=== PATIENT | female | born 1995 | race Caucasian/White ===

== ENCOUNTER 2018-12-07 00:20 | Emergency (ER) | payer OTHER ==
[~2018-12-07] VITALS: Ht 157.5 cm; Wt 79.0 kg
[2018-12-07 00:41] VITALS: BP 129/96; Ht 157.5 cm; Wt 79.0 kg
[2018-12-07 01:17] LABS: BASOPHIL % 0.4 % (0-2); PLATELET COUNT 234 x10^3mcL (130-400)
[2018-12-07 01:20] LABS: RED CELL DISTRIBUTION WIDTH 15.6 % (11.5-14.5)
[2018-12-07 01:22] LABS: CALCIUM 8.3 mg/dL (8.5-10.1); CARBON DIOXIDE 21.1 mmol/L (21-32); CHLORIDE SERUM 110 mmol/L (98-107); CREATININE SERUM 0.5 mg/dL (0.6-1.0); GFR1 > 60 mL/min; GLUCOSE SERUM 85 mg/dL (74-106); POTASSIUM SERUM 3.2 mmol/L (3.5-5.1); SODIUM SERUM 142 mmol/L (136-145)
[2018-12-07 01:27] LABS: ALBUMIN 2.1 g/dL (3.4-5.0); ALKALINE PHOSPHATASE 189 U/L (46-116); ALT/SGPT 10 U/L (14-59); AST/SGOT 10 U/L (15-37); BILIRUBIN TOTAL 0.53 mg/dL (0.20-1.00); LIPASE 65 IU/L (73-393); TOTAL PROTEIN, SERUM 5.9 g/dL (6.4-8.2)
== END 2018-12-07 01:48 | disposition home or self-care (01) ==
LOC: ED 00:20
PROVIDERS: Emergency Medicine
DX: O99.611 Diseases of the digestive system complicating pregnancy, first trimester (principal); K92.9 Disease of digestive system, unspecified; K29.70 Gastritis, unspecified, without bleeding; O21.9 Vomiting of pregnancy, unspecified; K13.0 Diseases of lips; Z3A.34 34 weeks gestation of pregnancy
CPT/HCPCS: 36415; Q0162

== ENCOUNTER 2019-01-07 18:12 | Inpatient (IN) | payer OTHER ==
[~2019-01-07] VITALS: Ht 162.6 cm; Wt 81.9 kg
--- NOTE | 2019-01-07 18:21 | NUR ---
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 PER MEDICS PT WOKE UP FROM HER SLEEP SHORT OF BREATH WITH A CONGESTED COUGH. PT RECENTLY HAD A VAGINAL ON 01/05/19. PER MEDICS PT ON SCENE WAS HYPERTENSIVE, TACYPNEIC, DIAPHORETIC AND HER O2 SAT WAS LOW 80'S, WITH TACHYCARDIA. UPON ARRIVAL PT AAOX4, RESPS LABORED WITH SYMMETRICAL RISE AND FALL. PT SKIN PINK DIAPORETIC AND WARM HOWEVER DRY ORAL MUCOSAS NOTED. CONGESTION NOTED TO RIGHT LUNGS AND LEFT LUNGS CLEAR UPON AUSCULTATION, PT APPEAR ANXIOUS SHAKING HER LEGS. BLE EDEMA NOTED. PT STS "BEEN LIKE THAT SINCE BUT LEFT ONE IS WORSENED SINCE, PT ABLE TO SPEAK 3-4 WORDS AT AT TIME D/T COUGHING AND PAINFUL INSPIRATION. PT ALSO +NAUSEA WITH NO EPISODES OF VOMITING, PT GOWNED AND PLACED ON FULL CM, SINUS TACYCARDIA,
--- NOTE | 2019-01-07 18:21 | NUR ---
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 PER MEDICS PT WOKE UP FROM HER SLEEP SHORT OF BREATH WITH A CONGESTED COUGH. PT RECENTLY HAD A VAGINAL ON 01/05/19. PER MEDICS PT ON SCENE WAS HYPERTENSIVE, TACYPNEIC, DIAPHORETIC AND HER O2 SAT WAS LOW 80'S, WITH TACHYCARDIA. UPON ARRIVAL PT AAOX4, RESPS LABORED WITH SYMMETRICAL RISE AND FALL. PT SKIN PINK DRY AND WARM HOWEVER DRY ORAL MUCOSAS NOTED. CONGESTION NOTED TO RIGHT LUNGS AND LEFT LUNGS CLEAR UPON AUSCULTATION, PT APPEAR ANXIOUS SHAKING HER LEGS. BLE EDEMA NOTED. PT STS "BEEN LIKE THAT SINCE BUT LEFT ONE IS WORSENED SINCE, PT ABLE TO SPEAK 3-4 WORDS AT AT TIME D/T COUGHING AND PAINFUL INSPIRATION. PT ALSO +NAUSEA WITH NO EPISODES OF VOMITING, PT GOWNED AND PLACED ON FULL CM, SINUS TACYCARDIA,
--- NOTE | 2019-01-07 18:23 | NUR ---
EKG IN PROGRESS
--- NOTE | 2019-01-07 18:27 | NUR ---
RT AT BEDSIDE
[2019-01-07 18:35] LABS: BASOPHIL % 0.5 % (0-2); PLATELET COUNT 308 x10^3mcL (130-400)
[2019-01-07 18:38] LABS: CALCIUM 7.6 mg/dL (8.5-10.1); CARBON DIOXIDE 22.2 mmol/L (21-32); CHLORIDE SERUM 108 mmol/L (98-107); CREATININE SERUM 0.8 mg/dL (0.6-1.0); GFR1 > 60 mL/min; GLUCOSE SERUM 93 mg/dL (74-106); POTASSIUM SERUM 4.4 mmol/L (3.5-5.1); SODIUM SERUM 143 mmol/L (136-145)
[2019-01-07 18:42] LABS: ALKALINE PHOSPHATASE 152 U/L (46-116); ALT/SGPT 20 U/L (14-59); AST/SGOT 36 U/L (15-37); BILIRUBIN TOTAL 0.4 mg/dL (0.20-1.00)
[2019-01-07 18:47] LABS: ALBUMIN 2.1 g/dL (3.4-5.0); TOTAL PROTEIN, SERUM 5.9 g/dL (6.4-8.2)
[2019-01-07 18:48] LABS: RED CELL DISTRIBUTION WIDTH 17.4 % (11.5-14.5)
--- NOTE | 2019-01-07 18:48 | NUR ---
PORTABLE CXR AT BEDSIDE
--- NOTE | 2019-01-07 18:54 | NUR ---
SPOUSE AT BEDSIDE
--- NOTE | 2019-01-07 19:10 | NUR ---
PT TAKEN TO CT VIA GURNEY ON PORTABLE CM
--- NOTE | 2019-01-07 19:25 | NUR ---
REPORT GIVEN TO THONG ROLDAN RN WHO IS RESUMING CARE OF PT AT THIS TIME
--- NOTE | 2019-01-07 20:26 | NUR ---
PT SITTING UP IN HIGH EPTER'S POSITION, RESP REMAINS TACHYPNEIC AT 32 BUT ARE EVEN AND UNLABORED. DENIES PAIN AT THIS TIME. O2 TITRATED DOWN TO 10L/MIN PER NON REBREATHER, PT TOLERATING WELL AND O2 SAT 99%.
--- NOTE | 2019-01-07 20:28 | NUR ---
DR LINDER AT BEDSIDE DISCUSSING PLAN OF CARE AT THIS TIME.
--- NOTE | 2019-01-07 20:31 | NUR ---
EKG IN PROGRESS
[2019-01-07 21:45] VITALS: BP 134/92
--- NOTE | 2019-01-07 21:50 | NUR ---
21:40 - PT NOTED TO BE INCREASINGLY TACHYPNEIC, ANXIOUS AND BECOMING AGITATED; STATING "I CAN'T BREATHE, I CAN'T BREATHE". PT NOTED TO BE SPITTING FOAMY YELLOW LIQUID OUT OF MOUTH. 21:45 - DR LINDER IN ROOM; PT INTUBATED BY DR LINDER, SEE CHART FOR DETAILS. 21:48 - PT NOTED WITH NO PULSES; CODE BLUE INITIATED. SEE CODE BLUE SHEET FOR DETAILS. 2150: ROSC ACHIEVED.
--- NOTE | 2019-01-07 22:20 | NUR ---
PROPOFOL STARTED AT 5 MCG/KG/MIN FOR SEDATION.
--- NOTE | 2019-01-07 23:00 | NUR ---
PORTABLE US IN PROGRESS AT BEDSIDE
[2019-01-07 23:01] LABS: UA SPECIFIC GRAVITY 1.025 (1.005-1.035); microscopic required? YES; urine erythrocyte 1+ (NEGATIVE)
--- NOTE | 2019-01-07 23:20 | NUR ---
PROPOFOL INFUSION INCREASED TO 10MCG/KG/MIN.
--- NOTE | 2019-01-07 23:30 | NUR ---
PROPOFOL INFUSION INCREASED TO 15 MCG/KG/MIN. PT VSS.
--- NOTE | 2019-01-07 23:45 | NUR ---
PROPOFOL INFUSION INCREASED TO 20 MCG/KG/MIN
[2019-01-08] VITALS (11 sets, daily range): BP systolic 106–145; BP diastolic 66–95; Ht 162.6 cm; Wt 81.9 kg
--- NOTE | 2019-01-08 | NUR ---
PROPOFOL INFUSION INCREASED TO 30 MCG/KG/MIN
--- NOTE | 2019-01-08 00:09 | NUR ---
DR SANCHEZ AND DR LINDER AT BEDSIDE
--- NOTE | 2019-01-08 00:09 | NUR ---
VENT SETTINGS CHANGED BY DR SANCHEZ. FI02 TO 70%.
--- NOTE | 2019-01-08 00:15 | NUR ---
PROPOFOL INCREASED TO 30MCG/KG/MIN
--- NOTE | 2019-01-08 00:33 | NUR ---
2GM MAG SULFATE GIVEN IVP PER DR LINDER ORDER.
--- NOTE | 2019-01-08 00:34 | NUR ---
PROPOFOL INFUSION INCREASED TO 35 MCG/KG/MIN
--- NOTE | 2019-01-08 00:50 | NUR ---
PROPOFOL INFUSION INCREASED TO 40 MCG/KG/MIN
--- NOTE | 2019-01-08 01:01 | NUR ---
PHARMACY CALLED FOR FENTANYL DRIP; WILL ADMINISTER ONCE COMPOUNDED AND AVAILABLE.
--- NOTE | 2019-01-08 01:13 | NUR ---
2L CLEAR YELLOW URINE DRAINED FROM F/C.
--- NOTE | 2019-01-08 01:34 | NUR ---
FENTANYL DRIP STARTED, VERIFIED WITH AWNING SPREADER AMANDA. WILL TITRATE.
--- NOTE | 2019-01-08 01:43 | NUR ---
REPORT CALLED TO GLENIS AT ICU FOR ADMISSION REPORT.
--- NOTE | 2019-01-08 01:47 | NUR ---
650CC CLEAR URINE EMPTIED FROM [facility] CATH
--- NOTE | 2019-01-08 02:15 | NUR ---
PT ARRIVED IN ICU FROM ER AND TRANSFERRED TO BED WITHOUT INCIDENT. PT CARE AND REPORT TAKEN INFORMATION TECHNOLOGY AUDIT MANAGER THONG WITH ALL QUESTIONS AND CONCERNS ANSWERED. PT SEDATED AND INTUBATED WITH A RSS OF 4. 7.5 ETT 23 AT LL ON VENT AC VT 500 RATE OF 16 PEEP 8 100% FIO2. WILL CONTINUE TO MONITOR PATIENT.
--- NOTE | 2019-01-08 03:16 | NUR ---
FAMILY AT BEDSIDE WITH THE PATIENT.
--- NOTE | 2019-01-08 04:11 | NUR ---
LAB AT BEDSIDE FOR DRAW
--- NOTE | 2019-01-08 04:16 | NUR ---
PROPOFOL TITRATED TO 45 MCG/KG/MIN DUE TO INCREASED PT MOVEMENT
[2019-01-08 05:19] LABS: PLATELET COUNT 251 x10^3mcL (130-400)
[2019-01-08 05:20] LABS: BASOPHIL % 0 % (0-2); RED CELL DISTRIBUTION WIDTH 17.4 % (11.5-14.5)
[2019-01-08 05:21] LABS: ALKALINE PHOSPHATASE 124 U/L (46-116); ALT/SGPT 22 U/L (14-59); AST/SGOT 43 U/L (15-37); BILIRUBIN TOTAL 0.3 mg/dL (0.20-1.00); CALCIUM 6.7 mg/dL (8.5-10.1); CARBON DIOXIDE 22.2 mmol/L (21-32); CHLORIDE SERUM 112 mmol/L (98-107); CREATININE SERUM 0.7 mg/dL (0.6-1.0); GFR1 > 60 mL/min; GLUCOSE SERUM 126 mg/dL (74-106); POTASSIUM SERUM 3.8 mmol/L (3.5-5.1); SODIUM SERUM 144 mmol/L (136-145)
[2019-01-08 05:29] LABS: ALBUMIN 2.1 g/dL (3.4-5.0); TOTAL PROTEIN, SERUM 5.2 g/dL (6.4-8.2)
[2019-01-08 05:31] LABS: MAGNESIUM 4.2 mg/dL (1.8-2.4)
--- NOTE | 2019-01-08 06:14 | NUR ---
PER DR RUST, SHE SPOKE WITH DR CABRAL AND HE STATED "THE PATIENT SHOULD NOT BE IN THIS HOSPITAL". DR RUST WAS UNSURE OF WHERE THE PATIENT SHOULD BE ADMITTED AND WAS TOLD TO CONTACT DR CABRAL.
--- NOTE | 2019-01-08 06:30 | NUR ---
DR MISHA LYONS. AWAITING RESPONSE FOR TRANSFER FACILITY
--- NOTE | 2019-01-08 06:30 | NUR ---
RT REDUCED FIO2 TO 90%
--- NOTE | 2019-01-08 06:44 | NUR ---
DR SCHWARTZ REQUESTED STAT ECH AND REPEAT BNP
--- NOTE | 2019-01-08 06:48 | NUR ---
UPDATES PROVIDED TO DR. SCHWARTZ, NEW ORDERS RECEIVED.
--- NOTE | 2019-01-08 07:05 | NUR ---
RECEIVED REPORT FROM GLENIS GREGORY. ALL QUESTIONS AND CONCERNS ADDRESSED. WILL RESUME CARE OF PT.
--- NOTE | 2019-01-08 07:07 | NUR ---
DR. SCHWARTZ AND DR. JACKSON AT BEDSIDE ASSESSING PT. ALL QUESTIONS AND CONCERNS ADDRESSED. NO NEW ORDERS AT THIS TIME.
--- NOTE | 2019-01-08 07:18 | NUR ---
ECCHO AT BEDSIDE.
--- NOTE | 2019-01-08 07:40 | NUR ---
RSS = 5. TITRATED PROPOFOL FROM 45 MCG/KG/MIN TO 40 MCG/KG/MIN.
--- NOTE | 2019-01-08 08:10 | NUR ---
RSS = 5. TITRATED PROPOFOL FROM 40 MCG/KG/MIN TO 35 MCG/KG/MIN.
--- NOTE | 2019-01-08 08:50 | NUR ---
RSS = 5. PROPOFOL TITRATED TO 30 MCG/KG/MIN.
--- NOTE | 2019-01-08 09:00 | NUR ---
SCREEN FOR LOW LAZARUS SCALE AT RISK PRESSURE ULCER INJURY PREVENTION INTERVENTIONS: -TURN AND REPOSITION PATIENT Q 2H OFFLOAD LEFT AND RIGHT HIPS -ASSESS AND MONITOR SKIN CONDITION DURING POSITION CHANGE -OFFLOAD BILATERAL HEELS BY PLACING PILLOWS UNDER CALVES AT ALL TIMES, UNLESS OTHERWISE CONTRAINDICATED -KEEP SKIN CLEAN AND DRY AT ALL TIMES.
--- NOTE | 2019-01-08 09:02 | NUR ---
TITRATED FENTANYL TO 0.5 MCG/KG/MIN TO ACHEIVE RSS = 4.
--- NOTE | 2019-01-08 09:10 | NUR ---
RSS = 5. PROPOFOL TITRATED FROM 30 MCG/KG/MIN TO 25 MCG/KG/MIN.
--- NOTE | 2019-01-08 09:30 | NUR ---
DR. SCHWARTZ NOTIFIED OF ABG RESULTS. STATED TO DROP FIO2% WITH PARAMETERS OF KEEPING PT'S O2 SAT ABOVE 92%. JUSTYN RT MADE AWARE AND DROPPING FIOW TO 50% AT THIS TIME. PT'S O2 SAT OF 98%. WILL CONT TO MONITOR.
--- NOTE | 2019-01-08 09:30 | NUR ---
DECREASED FIO2 FROM 80% TO 50% POST ABG RESULTS. PER ALEXIA GREGORY WHO SPOKE WITH TO ADJUST FIO2 AND KEEP SATURATION 92% OR ABOVE.
--- NOTE | 2019-01-08 11:01 | NUR ---
TRANSFERED PATIENT @1030 TO OR ON VENTILATOR WITH NO INCIDENT. AMBU BAG AT BEDSIDE AND PATIENT ON MONITOR.
--- NOTE | 2019-01-08 11:11 | NUR ---
PT BACK FROM CT HEAD ACCOMPANIED BY PRIMARY RN AND CT TECHS. PT WENT TO CT AND BACK WITHOUT INCIDENT. PT'S AT BEDSIDE.
--- NOTE | 2019-01-08 12:02 | NUR ---
RSS = 5. TITRATED FENTANYL TO 0.25 MCG/KG/HR AND PROPOFOL TO 20 MCG/KG/MIN.
--- NOTE | 2019-01-08 12:28 | NUR ---
RSS = 5. PROPOFOL TITRATED FROM 20 MCG/KG/MIN TO 15 MCG/KG/MIN.
--- NOTE | 2019-01-08 12:57 | NUR ---
PT HAVING SEIZURE-LIKE MOVEMENTS. ATIVAN 2MG/ML PRN SEIZURES GIVEN AT THIS TIME. SEE EMAR FOR DETAILS.
--- NOTE | 2019-01-08 13:04 | NUR ---
PT BECOMING TACHYCARDIC AND TACHYPNIC AT THIS TIME. PROPOFOL TITRATED FROM 15 MCG/KG/MIN TO 20 MCG/KG/MIN.
--- NOTE | 2019-01-08 14:40 | NUR ---
DR. SCHWARTZ CALLED FOR UPDATES ON PT STATUS. INFORMED HIM OF PT'S SEIZURE-LIKE ACTIVITY AND GIVEN ATIVAN TO PT. HE STATES THAT PT WILL NEED A NEUROLOGIST AND WILL NEED TO GET TRANSFERRED TO [place]. FIO2 MUST BE LOWERED TO 40% TO BE TRANSFERRED. WILL INFORM RT.
--- NOTE | 2019-01-08 15:00 | NUR ---
CHIEF OF PLANNING CALLED AT THIS TIME STATING THAT [facility] IS ACCEPTING PT. PT WILL BE GOING TO ICU BED 6. PHONE #: . DR. AVENDAÑO ACCEPTING PHYSICIAN. WILL CONTACT FAMILY AT THIS TIME.
--- NOTE | 2019-01-08 15:07 | NUR ---
SHAWN (PT'S SIGNIFICANT OTHER) NOTIFIED OF PT BEING TRANSFERRED TO [place] NO LATER THAN 1629. SIGNIFICANT OTHER STATES THAT HE WILL TALK TO PT'S PARENTS AND NOTIFY THEM WELL.
--- NOTE | 2019-01-08 15:31 | NUR ---
[facility] CALLED AT THIS TIME. REPORT GIVEN TO SAGE GREGORY. ALL QUESTIONS AND CONCERNS ADDRESSED. CALL BACK NUMBER TO [facility] GIVEN IF IN NEED OF FURTHER QUESTIONS FROM PT VISIT.
--- NOTE | 2019-01-08 16:05 | NUR ---
FIO2 FROM 50% TO 40%. SPO2 MAINTAINED AT 99.
--- NOTE | 2019-01-08 16:20 | NUR ---
[facility] TEAM AT BEDSIDE TO TRANSFER PT. PT'S BELONGINGS SENT WITH PT'S MOTHER AT THIS TIME.
--- NOTE | 2019-01-08 16:47 | NUR ---
PT CAREFULLY TRANSFERRED TO [facility] AT THIS TIME. NO COMPLICATIONS NOTED. CLINICAL TRAINER GIVEN FENTANYL GTT AND PROPOFOL GTT. INSTRUCTED RN TO SIGN BLUE DRUG FENTANYL SLIP AND TO TELL BAR RN AT [place] TO FILL OUT AND SIGN PAPER AND FAX SLIP BACK TO [facility] ICU.
== END 2019-01-08 16:55 | disposition short-term general hospital (02) | DRG 776 ==
LOC: ED 18:12 → IC 01-08 00:12
PROVIDERS: Emergency Medicine; ADMIT Internal Medicine Pulmonary Disease
PROC: 5A1935Z Respiratory Ventilation, Less than 24 Consecutive Hours (ICD-10-PCS; principal; 2019-01-08)
PROC: 0BH17EZ Insertion of Endotracheal Airway into Trachea, Via Natural or Artificial Opening (ICD-10-PCS; 2019-01-08)
PROC: 5A12012 Performance of Cardiac Output, Single, Manual (ICD-10-PCS; 2019-01-08)
DX: O99.53 Diseases of the respiratory system complicating the puerperium (principal); I46.9 Cardiac arrest, cause unspecified; J96.01 Acute respiratory failure with hypoxia; J90 Pleural effusion, not elsewhere classified; I31.3 Pericardial effusion (noninflammatory); J81.1 Chronic pulmonary edema; O14.95 Unspecified pre-eclampsia, complicating the puerperium; O99.43 Diseases of the circulatory system complicating the puerperium; O86.20 Urinary tract infection following delivery, unspecified
CPT/HCPCS: 36600; 83880; C9113; G0378; J0171; J0360; J0456; J0610; J0696; J1200; J1650; J1940; J2060; J2405; J2704; J2930; J3010; J3475; J3490; J7030; J7050; J7613; P9047; Q0092; Q9967